=== PATIENT | female | born 1975 | race Caucasian/White ===

== ENCOUNTER 2018-08-11 22:00 | Emergency (ER) | payer OTHER ==
[2018-08-11 22:08] VITALS: BP 153/103
--- NOTE | 2018-08-11 22:50 | EDM.PDOC ---
ED HPI GENERAL MEDICAL PROBLEM - General Chief Complaint: Neuro Symptoms/Deficits Stated Complaint: R SIDE OF FACE NUMB Time Seen by Provider: 08/11/18 22:50 - History of Present Illness INITIAL COMMENTS - FREE TEXT/NARRATIVE: 42-year-old female presents emergency room with right-sided facial numbness. 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 Her vision is not interfered with she has full function of her eyelids. At times her voice seems a little slightly off according to the . This started about a day and a half ago. She's had no hearing problems no pain associated with this. - Related Data Allergies Allergy/AdvReac Type Severity Reaction Status Date / Time No Known Allergies Allergy Verified 08/11/18 22:07 Home Meds: Home Meds Citalopram Hydrobromide [Citalopram HBr] 10 tab PO DAILY 01/12/16 [History] Lisinopril 20 tab PO DAILY 01/12/16 [History] metFORMIN [Glucophage] 500 mg pe PO BID 01/12/16 [History] Liraglutide [Victoza 3-Jonnathan] 2.8 mg SQ DAILY 08/11/18 [History] atorvaSTATin [Lipitor] 10 mg PO BEDTIME 08/11/18 [History] predniSONE [Prednisone] 60 mg PO Q24H #18 tablet 08/11/18 [Rx] valACYclovir [Valtrex] 1,000 mg PO Q8H #20 tab 08/11/18 [Rx] Past Medical History Cardiovascular History: Reports: High Cholesterol, Hypertension Psychiatric History: Reports: Anxiety, Depression Endocrine/Metabolic History: Reports: Diabetes, Type II Social & Family History - Family History Family Medical History: Noncontributory - Tobacco Use Smoking Status *Q: Current Every Day Smoker Years of Tobacco use: 20 Packs/Tins Daily: 1 - Caffeine Use Caffeine Use: Reports: Coffee - Recreational Drug Use Recreational Drug Use: No ED ROS GENERAL - Review of Systems Review Of Systems: See Below Constitutional: Reports: No Symptoms HEENT: Reports: No Symptoms Respiratory: Reports: No Symptoms Cardiovascular: Reports: No Symptoms Endocrine: Reports: No Symptoms GI/Abdominal: Reports: No Symptoms : Reports: No Symptoms Skin: Reports: No Symptoms Neurological: Reports: Other (Slight numbness around the right side of the face) Psychiatric: Reports: No Symptoms ED EXAM, NEURO - Physical Exam Exam: See Below Exam Limited By: No Limitations General Appearance: Alert, No Apparent Distress Eye Exam: Bilateral Eye: EOMI, Normal Inspection, PERRL, Other (Normal liver function) Ears: Normal External Exam, Normal Canal, Hearing Grossly Normal, Normal TMs Nose: Normal Inspection, Normal Mucosa, No Blood Throat/Mouth: Normal Inspection, Normal Teeth, Normal Gums, Normal Oropharynx, Normal Voice, No Airway Compromise, Other (Right side of her lips droops subtly more than normal speech does not appear to be affected too much but at times seems like she slurs the end of the word. Her noticed that when he talked to on the phone earlier her voice was just slightly off) Head Exam: Atraumatic, Normocephalic Neck: Normal Inspection, Supple, Non-Tender, Full Range of Motion. No: Lymphadenopathy (L), Lymphadenopathy (R) Respiratory/Chest: No Respiratory Distress, Lungs Clear, Normal Breath Sounds Cardiovascular: Normal Peripheral Pulses, Regular Rate, Rhythm Neurological: Other (Cranial nerves II through XII grossly intact all muscle groups the upper lower extremities recall appropriate bilaterally deep tendon reflexes the brachial radialis are equal and appropriate bilaterally. Cerebellar testing is normal) Course - Vital Signs Last Recorded V/S: Last Vital Signs Temp 36.3 C 08/11/18 22:05 Pulse 83 08/11/18 22:05 Resp 16 08/11/18 22:05 BP 153/103 H 08/11/18 22:05 Pulse Ox 98 08/11/18 22:05 - Orders/Labs/Meds Meds: Medications Discontinued Medications Generic Name Dose Route Start Last Admin Trade Name Tracee PRN Reason Stop Dose Admin Prednisone 60 mg 08/11/18 23:26 Prednisone PO 08/11/18 23:27 ONETIME ONE Valacyclovir HCl 1,000 mg 08/11/18 23:26 Valtrex PO 08/11/18 23:27 ONETIME ONE - Re-Assessments/Exams Free Text/Narrative Re-Assessment/Exam: 08/11/18 23:28 Patient has what looks like early Smith's palsy affecting the right side of her face. Unfortunately the patient has diabetes however because of the significance the Smith's palsy the patient started on Valtrex and prednisone 60 mg a day for 7 days Valtrex 1000 mg 3 times a day Departure - Departure Time of Disposition: 23:29 Disposition: Home, Self-Care 01 Clinical Impression: Smith's palsy - Discharge Information Prescriptions: predniSONE [Prednisone] 60 mg PO Q24H #18 tablet valACYclovir [Valtrex] 1,000 mg PO Q8H #20 tab Referrals: Chay Dunham PA [Primary Care Provider] - Forms: ED Department Discharge Additional Instructions: Return to emergency room if any questions problems worsening symptoms. Follow-up with your doctor on Wednesday. Take the medications as directed
[2018-08-11] MEDS ORDERED: valACYclovir 500 MG Tab PO ONE (23:26)
[2018-08-11] MEDS ORDERED: predniSONE 20 MG Tab PO ONE (23:26)
== END 2018-08-11 23:46 | disposition home or self-care (01) ==
LOC: JD.ED 22:00
DX: G51.0 Bell's palsy (principal); E78.00 Pure hypercholesterolemia, unspecified; I10 Essential (primary) hypertension; F41.9 Anxiety disorder, unspecified; F32.9 Major depressive disorder, single episode, unspecified; E11.9 Type 2 diabetes mellitus without complications; F17.210 Nicotine dependence, cigarettes, uncomplicated; Z79.899 Other long term (current) drug therapy; Z79.84 Long term (current) use of oral hypoglycemic drugs
CPT/HCPCS: 99283; A9270

== ENCOUNTER 2020-02-28 08:36 | Emergency (ER) | payer BC, OTHER ==
[2020-02-28 09:00] VITALS: BP 197/97; PULSE 86
--- NOTE | 2020-02-28 09:24 | EDM.PDOC ---
ED HPI GENERAL MEDICAL PROBLEM - General Chief Complaint: Upper Extremity Injury/Pain Stated Complaint: RIGHT SIDE SHOULDER/NECK PAIN Time Seen by Provider: 02/28/20 08:49 Source of Information: Reports: Patient History Limitations: Reports: No Limitations - History of Present Illness INITIAL COMMENTS - FREE TEXT/NARRATIVE: 44-year-old female presents with complaints of neck pain. Patient states this started 2 to 3 weeks ago after a coughing spell. She has been in to see her primary care provider, Anais Valverde, regarding this and has been given hydrocodone and was sent for an MRI however she got very claustrophobic and could not complete the MRI. Patient states she has pain that radiates down her right shoulder down her right arm to her finger tips. At times her arm feels very heavy and she has numbness to her right hand. Right Shoulder Pain Score (Numeric/FACES): 9 - Related Data Allergies Allergy/AdvReac Type Severity Reaction Status Date / Time exenatide [From Bydureon] Allergy Other Verified 02/28/20 08:48 Home Meds: Home Meds Lisinopril 20 tab PO DAILY 01/12/16 [History] metFORMIN [Glucophage] 1,000 mg PO BID 01/12/16 [History] atorvaSTATin [Lipitor] 10 mg PO BEDTIME 08/11/18 [History] Cyclobenzaprine [Flexeril] 10 mg PO ASDIRECTED PRN 02/28/20 [History] Diclofenac Sodium [Voltaren] 75 mg PO BIDMEALS #16 tab.cr 02/28/20 [Rx] Dulaglutide [Trulicity] 0.75 mg SQ TH 02/28/20 [History] FLUoxetine HCl [Sarafem] 20 mg PO DAILY 02/28/20 [History] Hydrocodone/Acetaminophen [Hydrocodone-Acetamin 7.5-325] 7.5 - 325 mg PO ASDIRECTED PRN 02/28/20 [History] Naproxen 500 mg PO ASDIRECTED PRN 02/28/20 [History] Orphenadrine [Norflex] 100 mg PO ASDIRECTED PRN 02/28/20 [History] oxyCODONE HCl/Acetaminophen [Percocet 5-325 mg Tablet] 1 each PO Q6H PRN #10 tablet 02/28/20 [Rx] predniSONE [Prednisone] 20 mg PO ASDIRECTED #15 tablet 02/28/20 [Rx] Past Medical History HEENT History: Reports: Impaired Vision Other HEENT History: wears eyeglasses. 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: Neurological History: Reports: Other (See Below) Other Neuro History: [place] Palsy Psychiatric History: Reports: Anxiety, Depression Endocrine/Metabolic History: Reports: Diabetes, Type II - Infectious Disease History Infectious Disease History: Reports: Chicken Pox Social & Family History - Family History Family Medical History: No Pertinent Family History - Tobacco Use Tobacco Use Status *Q: Current Every Day Tobacco User Years of Tobacco use: 25 Packs/Tins Daily: 1 - Caffeine Use Caffeine Use: Reports: Coffee - Recreational Drug Use Recreational Drug Use: No Review of Systems - Review of Systems Review Of Systems: See Below Constitutional: Reports: No Symptoms Eyes: Reports: No Symptoms Ears: Reports: No Symptoms Nose: Reports: No Symptoms Mouth/Throat: Reports: No Symptoms Respiratory: Reports: No Symptoms Cardiovascular: Reports: No Symptoms GI/Abdominal: Reports: No Symptoms Genitourinary: Reports: No Symptoms Musculoskeletal: Reports: Neck Pain, Shoulder Pain (right), Arm Pain (right), Hand Pain (right) Skin: Reports: No Symptoms Neurological: Reports: No Symptoms, Numbness (right hand), Tingling (right hand) Psychiatric: Reports: No Symptoms ED EXAM, GENERAL - Physical Exam Exam: See Below Exam Limited By: No Limitations General Appearance: Alert, WD/WN, Mild Distress Eye Exam: Bilateral Eye: PERRL Ears: Hearing Grossly Normal Nose: Normal Inspection Throat/Mouth: Normal Voice, No Airway Compromise Head: Atraumatic, Normocephalic Neck: Normal Inspection, Supple, Full Range of Motion, Tender Midline (cervical ) Respiratory/Chest: No Respiratory Distress, Lungs Clear, Normal Breath Sounds, No Accessory Muscle Use, Chest Non-Tender Cardiovascular: Normal Peripheral Pulses, Regular Rate, Rhythm, No Edema Peripheral Pulses: 2+: Radial (L), Radial (R) GI/Abdominal: Normal Bowel Sounds, Soft, Non-Tender, No Distention (Female) Exam: Deferred Rectal (Female) Exam: Deferred Back Exam: Normal Inspection, Full Range of Motion Extremities: Normal Inspection, Normal Range of Motion, Non-Tender, No Pedal Edema, Normal Capillary Refill Neurological: Alert, Oriented, Normal Cognition Psychiatric: Normal Affect, Normal Mood Skin Exam: Warm, Dry, Intact, Normal Color, No Rash Lymphatic: No Adenopathy Course - Vital Signs Text/Narrative:: 44-year-old female presented to the ER with complaints of neck pain. States this started about 2 to 3 weeks ago when she had a coughing spell. Has been progressively getting worse with the pain radiating down the right shoulder to the right arm to her finger tips. At times her hand becomes numb and her arm feels heavy. It has become so severe that it has become difficult to sleep. She has seen her primary provider, Anais Valverde, who had given her hydrocodone and ordered an MRI however she was not able to tolerate it as she became claustrophobic. Upon physical assessment I was not able to reproduce the radiating pain down her arm however she does have cervical tenderness with palpation. Will start a course of Voltaren x8 days, prednisone, and will refer her to physical therapy. Patient should follow up with her primary care provider within a couple of weeks if she is not improving. Last Recorded V/S: Last Vital Signs Temp 96.8 F L 02/28/20 08:45 Pulse 86 02/28/20 08:45 Resp 18 02/28/20 08:45 BP 197/97 H 02/28/20 08:45 Pulse Ox 99 02/28/20 08:45 Departure - Departure Time of Disposition: 09:24 Disposition: Home, Self-Care 01 Condition: Good Clinical Impression: Cervical spine pain - Discharge Information Prescriptions: oxyCODONE HCl/Acetaminophen [Percocet 5-325 mg Tablet] 1 each PO Q6H PRN #10 tablet PRN Reason: Pain (Moderate 4-6) predniSONE [Prednisone] 20 mg PO ASDIRECTED #15 tablet Diclofenac Sodium [Voltaren] 75 mg PO BIDMEALS #16 tab.cr Instructions: Pain Medicine Instructions, [id number] Referrals: Kendal Santiago PA-C [Primary Care Provider] - Forms: ED Department Discharge, ED Return to Work/School Form Additional Instructions: You were seen in the ED with complaints of neck pain. Likely due to bulging disc. I was unable to reproduce the shoulder/arm pain. I have sent a prescription for Voltaren 75mg bid x 8 days and Prednisone twice daily for 5 days and then daily for 5 days. Be sure to take these medications with food. You can take Percocet 1 tab every 4 hours as needed for severe pain. Be sure to take a stool softener while taking narcotic pain medications. Follow up with physical therapy. Likely see improvement in two weeks. Follow up with your primary care provider within two weeks. Stop taking all previous prescribed pain medications. Sepsis Event Note (ED) - Evaluation Sepsis Screening Result: No Definite Risk - Focused Exam Vital Signs: Vital Signs Temp Pulse Resp BP Pulse Ox 02/28/20 08:45 96.8 F L 86 18 197/97 H 99
== END 2020-02-28 09:54 | disposition home or self-care (01) ==
LOC: JD.ED 08:36
DX: M54.2 Cervicalgia (principal); E78.00 Pure hypercholesterolemia, unspecified; I10 Essential (primary) hypertension; F41.9 Anxiety disorder, unspecified; F32.9 Major depressive disorder, single episode, unspecified; E11.9 Type 2 diabetes mellitus without complications; F17.210 Nicotine dependence, cigarettes, uncomplicated; Z88.8 Allergy status to other drugs, medicaments and biological substances; Z79.84 Long term (current) use of oral hypoglycemic drugs; Z79.899 Other long term (current) drug therapy
CPT/HCPCS: 99283

== ENCOUNTER 2021-09-28 20:55 | Emergency (ER) | payer BC ==
[2021-09-28 21:18] VITALS: BP 194/97; PULSE 82
[2021-09-28] MEDS ORDERED: Magnesium Citrate Solution 296 ML Bottle PO ONE (21:20)
[2021-09-28] MEDS ORDERED: Dicyclomine 10 MG Cap PO ONE (21:20)
[2021-09-28] MEDS ORDERED: Ketorolac 60 MG/2 ML SDV IM ONE (22:21)
[2021-09-29] MEDS ORDERED: Magnesium Citrate Solution 296 ML Bottle PO ONE (00:44)
== END 2021-09-29 00:50 | disposition home or self-care (01) ==
LOC: JD.ED 20:55
DX: K59.00 Constipation, unspecified (principal); I10 Essential (primary) hypertension; E78.00 Pure hypercholesterolemia, unspecified; E11.9 Type 2 diabetes mellitus without complications; Z88.8 Allergy status to other drugs, medicaments and biological substances; Z79.84 Long term (current) use of oral hypoglycemic drugs; Z68.34 Body mass index [BMI] 34.0-34.9, adult; Z79.899 Other long term (current) drug therapy
CPT/HCPCS: 74018; 96372; 99284; A9270; J1885; 99282

== ENCOUNTER 2021-10-01 14:42 | Emergency (ER) | payer BC ==
[2021-10-01 14:58] VITALS: BP 180/92; PULSE 83
[2021-10-01] MEDS ORDERED: Sodium Chloride 0.9% 10 ML Syringe FLUSH PRN (15:27)
[2021-10-01] MEDS ORDERED: Hyoscyamine 0.125 MG Tab.SL SL ONE (16:16)
== END 2021-10-01 19:19 | disposition home or self-care (01) ==
LOC: JD.ED 14:42
DX: R10.11 Right upper quadrant pain (principal); E78.00 Pure hypercholesterolemia, unspecified; I10 Essential (primary) hypertension; E11.9 Type 2 diabetes mellitus without complications; Z88.8 Allergy status to other drugs, medicaments and biological substances; Z79.899 Other long term (current) drug therapy; Z79.4 Long term (current) use of insulin
CPT/HCPCS: 36415; 74019; 76705; 80053; 81003; 83690; 83735; 85025; 86140; 99284; A9270; J3490

== ENCOUNTER 2022-12-01 12:48 | Emergency (ER) | payer BC ==
[2022-12-01] MEDS ORDERED: Labetalol 100 MG/20 ML MDV IVPUSH ONE (13:26)
[2022-12-01] MEDS ORDERED: LORazepam 2 MG/ML SDV IVPUSH ONE (13:45)
[2022-12-01 13:51] LABS: BASOPHILS ABSOLUTE AUTO 0.1 K/mm3 (0.0-0.2); BASOPHILS PERCENT AUTO 0.8 % (0.0-1.0); EOSINOPHILS ABSOLUTE AUTO 0.2 K/mm3 (0.0-0.4); EOSINOPHILS PERCENT AUTO 2.5 % (0.0-6.0); HEMATOCRIT 44.3 % (37.0-47.0); HEMOGLOBIN 15.2 gm/dl (12.0-16.0); IMMATURE GRAN ABSOLUTE AUTO 0.02 K/mm3 (0.00-0.05); IMMATURE GRAN PERCENT AUTO 0.2 % (0.0-0.4); LYMPHOCYTES ABSOLUTE AUTO 2.5 K/mm3 (1.0-4.8); LYMPHOCYTES PERCENT AUTO 29.2 % (24.0-44.0); MEAN CORPUSCULAR HEMOGLOBIN 29.1 pg (28.0-32.0); MEAN CORPUSCULAR HGB CONC 34.3 g/dl (32.0-36.0); MEAN CORPUSCULAR VOLUME 84.7 fl (83.0-99.0); MEAN PLATELET VOLUME 9.3 fl (9.4-12.3); MONOCYTES ABSOLUTE AUTO 0.6 K/mm3 (0.0-0.8); MONOCYTES PERCENT AUTO 7.3 % (0.0-8.0); NEUTROPHILS ABSOLUTE AUTO 5.1 K/mm3 (1.8-7.7); PLATELET COUNT,PLT 218 K/mm3 (150-400); RED BLOOD CELL COUNT 5.23 M/mm3 (4.10-5.30); WHITE BLOOD CELL COUNT,WBC 8.54 K/mm3 (3.9-11.3)
[2022-12-01 14:09] LABS: INR 0.94; PROTHROMBIN TIME 10.1 SECONDS (9.7-12.0)
[2022-12-01 14:10] LABS: PTT,PARTIAL THROMBOPLSTIN TIME 31.1 SECONDS (21.7-31.4)
[2022-12-01 14:29] LABS: A/G RATIO 0.8 (1-2); ALBUMIN 3.3 g/dl (3.4-5.0); ANION GAP 11.3 (5-15); BILIRUBIN TOTAL 0.2 mg/dL (0.2-1.0); BUN/CREATININE RATIO 14.4 (14-18); CALCIUM 8.7 mg/dL (8.5-10.1); CREATININE 0.9 mg/dL (0.55-1.02); EST CRCL DRUG DOSING (CG) 72.34 mL/min; POTASSIUM,K 3.3 mEq/L (3.5-5.1); PROTEIN TOTAL,TP 7.6 g/dl (6.4-8.2)
[2022-12-01] MEDS ORDERED: hydrALAZINE 20 MG/ML SDV IVPUSH ONE (15:33)
[2022-12-01] MEDS ORDERED: Lisinopril 20 MG Tab PO ONE (17:13)
[2022-12-01 17:25] VITALS: BP 187/94
[2022-12-01 17:26] VITALS: PULSE 84
== END 2022-12-01 19:17 | disposition home or self-care (01) ==
LOC: JD.ED 12:48
DX: I16.0 Hypertensive urgency (principal); E78.00 Pure hypercholesterolemia, unspecified; I10 Essential (primary) hypertension; E11.9 Type 2 diabetes mellitus without complications; Z88.8 Allergy status to other drugs, medicaments and biological substances
CPT/HCPCS: 36415; 70450; 80053; 84484; 85025; 85610; 85730; 93005; 96374; 96375; 99284; A9270; J0360; J2060; J3490; 93010

== ENCOUNTER 2022-12-03 07:38 | Emergency (ER) | payer BC ==
[2022-12-03] MEDS ORDERED: Sodium Chloride 0.9% 10 ML Syringe FLUSH PRN ×2 (08:06→08:12)
[2022-12-03] MEDS ORDERED: Labetalol 100 MG/20 ML MDV IVPUSH ONE ×3 (08:09→09:58)
[2022-12-03] MEDS ORDERED: LORazepam 2 MG/ML SDV IVPUSH ONE (08:09)
[2022-12-03] MEDS ORDERED: HYDROmorphone 0.5 MG/0.5 ML Syringe IVPUSH ONE (08:09)
[2022-12-03] MEDS ORDERED: Ondansetron 4 MG/2 ML SDV IVPUSH ONE (08:10)
[2022-12-03] MEDS ORDERED: Iopamidol 755 Mg/ML 100 ML Bottle IVPUSH ONE (08:12)
[2022-12-03] MEDS ORDERED: Sodium Chloride 0.9% 100 ML IV SCH (08:15)
[2022-12-03 08:21] LABS: BASOPHILS ABSOLUTE AUTO 0.1 K/mm3 (0.0-0.2); BASOPHILS PERCENT AUTO 0.8 % (0.0-1.0); EOSINOPHILS ABSOLUTE AUTO 0.3 K/mm3 (0.0-0.4); EOSINOPHILS PERCENT AUTO 3.6 % (0.0-6.0); HEMATOCRIT 43.8 % (37.0-47.0); HEMOGLOBIN 14.7 gm/dl (12.0-16.0); IMMATURE GRAN ABSOLUTE AUTO 0.04 K/mm3 (0.00-0.05); IMMATURE GRAN PERCENT AUTO 0.4 % (0.0-0.4); LYMPHOCYTES ABSOLUTE AUTO 2.9 K/mm3 (1.0-4.8); LYMPHOCYTES PERCENT AUTO 31.5 % (24.0-44.0); MEAN CORPUSCULAR HEMOGLOBIN 28.7 pg (28.0-32.0); MEAN CORPUSCULAR HGB CONC 33.6 g/dl (32.0-36.0); MEAN CORPUSCULAR VOLUME 85.5 fl (83.0-99.0); MEAN PLATELET VOLUME 9.2 fl (9.4-12.3); MONOCYTES ABSOLUTE AUTO 0.7 K/mm3 (0.0-0.8); MONOCYTES PERCENT AUTO 7.4 % (0.0-8.0); NEUTROPHILS ABSOLUTE AUTO 5.2 K/mm3 (1.8-7.7); NEUTROPHILS PERCENT AUTO 56.3 % (41.0-71.0); PLATELET COUNT,PLT 216 K/mm3 (150-400); RED BLOOD CELL COUNT 5.12 M/mm3 (4.10-5.30); WHITE BLOOD CELL COUNT,WBC 9.32 K/mm3 (3.9-11.3)
[2022-12-03 08:44] LABS: A/G RATIO 0.8 (1-2); ALBUMIN 3.4 g/dl (3.4-5.0); ANION GAP 13.2 (5-15); BILIRUBIN TOTAL 0.5 mg/dL (0.2-1.0); EST CRCL DRUG DOSING (CG) 65.11 mL/min; POTASSIUM,K 4.2 mEq/L (3.5-5.1); PROTEIN TOTAL,TP 7.6 g/dl (6.4-8.2)
[2022-12-03] MEDS ORDERED: HYDROmorphone 1 MG/ML Syringe IVPUSH ONE (09:01)
[2022-12-03] MEDS ORDERED: Ketorolac 30 MG/ML SDV IVPUSH ONE (09:57)
[2022-12-03] MEDS ORDERED: Metoclopramide 10 MG/2 ML SDV IVPUSH ONE (09:57)
[2022-12-03] MEDS ORDERED: diphenhydrAMINE 50 MG/ML SDV IVPUSH ONE (09:58)
[2022-12-03] MEDS ORDERED: hydrALAZINE 20 MG/ML SDV IVPUSH ONE (11:00)
[2022-12-03] MEDS ORDERED: amLODIPine 5 MG Tab PO ONE (13:49)
[2022-12-03 14:58] VITALS: BP 157/77; PULSE 79
== END 2022-12-03 14:55 | disposition home or self-care (01) ==
LOC: JD.ED 07:38
DX: I10 Essential (primary) hypertension (principal); E78.00 Pure hypercholesterolemia, unspecified; Z86.16 Personal history of COVID-19; E11.9 Type 2 diabetes mellitus without complications; Z87.891 Personal history of nicotine dependence; Z88.8 Allergy status to other drugs, medicaments and biological substances; Z79.899 Other long term (current) drug therapy; Z79.84 Long term (current) use of oral hypoglycemic drugs
CPT/HCPCS: 36415; 70450; 70496; 70498; 80053; 84484; 85025; 93005; 96374; 96375; 96376; 99284; A9270; J0360; J1170; J1200; J1885; J2060; J2405; J2765; J3490; Q9967

== ENCOUNTER 2023-01-03 20:25 | Emergency (ER) | payer BC ==
[2023-01-03] MEDS ORDERED: Aspirin 81 MG Tab.Chew PO ONE (20:49)
[2023-01-03] MEDS: Nitroglycerin 0.4 MG Tab.SL SL PRN ×3 (20:54→21:07)
[2023-01-03 20:57] LABS: BASOPHILS ABSOLUTE AUTO 0.1 K/mm3 (0.0-0.2); BASOPHILS PERCENT AUTO 0.7 % (0.0-1.0); EOSINOPHILS ABSOLUTE AUTO 0.3 K/mm3 (0.0-0.4); EOSINOPHILS PERCENT AUTO 3.3 % (0.0-6.0); HEMATOCRIT 42.9 % (37.0-47.0); HEMOGLOBIN 14.8 gm/dl (12.0-16.0); IMMATURE GRAN ABSOLUTE AUTO 0.03 K/mm3 (0.00-0.05); IMMATURE GRAN PERCENT AUTO 0.3 % (0.0-0.4); LYMPHOCYTES ABSOLUTE AUTO 3.2 K/mm3 (1.0-4.8); LYMPHOCYTES PERCENT AUTO 31.1 % (24.0-44.0); MEAN CORPUSCULAR HEMOGLOBIN 29.5 pg (28.0-32.0); MEAN CORPUSCULAR HGB CONC 34.5 g/dl (32.0-36.0); MEAN CORPUSCULAR VOLUME 85.6 fl (83.0-99.0); MEAN PLATELET VOLUME 9.3 fl (9.4-12.3); MONOCYTES ABSOLUTE AUTO 0.5 K/mm3 (0.0-0.8); MONOCYTES PERCENT AUTO 5.3 % (0.0-8.0); NEUTROPHILS PERCENT AUTO 59.3 % (41.0-71.0); PLATELET COUNT,PLT 264 K/mm3 (150-400); RED BLOOD CELL COUNT 5.01 M/mm3 (4.10-5.30); WHITE BLOOD CELL COUNT,WBC 10.12 K/mm3 (3.9-11.3)
[2023-01-03] MEDS ORDERED: Sodium Chloride 0.9% 1,000 ML IV SCH (21:00)
[2023-01-03 21:15] LABS: A/G RATIO 0.8 (1-2); ALBUMIN 3.7 g/dl (3.4-5.0); ANION GAP 15.3 (5-15); BILIRUBIN TOTAL 0.3 mg/dL (0.2-1.0); CALCIUM 9.5 mg/dL (8.5-10.1); EST CRCL DRUG DOSING (CG) 65.11 mL/min; POTASSIUM,K 3.3 mEq/L (3.5-5.1); PROTEIN TOTAL,TP 8.5 g/dl (6.4-8.2)
[2023-01-03 21:29] LABS: PROTHROMBIN TIME 9.8 SECONDS (9.7-12.0)
[2023-01-03 21:30] LABS: PTT,PARTIAL THROMBOPLSTIN TIME 30.5 SECONDS (21.7-31.4)
[2023-01-03] MEDS ORDERED: Morphine 2 MG/ML SYRINGE IVPUSH ONE ×3 (21:31→23:32)
[2023-01-03 21:32] LABS: INR < 0.93
[2023-01-03] MEDS ORDERED: Nitroglycerin 2% Oint 1 GM UD Packet TOP ONE (21:34)
[2023-01-03] MEDS ORDERED: Ondansetron 4 MG/2 ML SDV ONE (21:41)
[2023-01-03] MEDS ORDERED: Ondansetron 4 MG/2 ML SDV IVPUSH ONE (21:42)
[2023-01-03] MEDS ORDERED: Potassium Chloride 20 MEQ Tab.ER PO ONE (22:24)
[2023-01-03] MEDS ORDERED: Sucralfate Suspension 1 GM/10 ML Cup PO ONE (22:43)
[2023-01-03 23:53] LABS: AMYLASE 54 U/L (25-115); LIPASE 32 U/L (16-77)
[2023-01-04] MEDS ORDERED: Morphine 2 MG/ML SYRINGE IVPUSH ONE (01:47)
[2023-01-04] MEDS ORDERED: LORazepam 2 MG/ML SDV IVPUSH ONE (03:21)
[2023-01-04] MEDS ORDERED: Iopamidol 755 Mg/ML 100 ML Bottle IVPUSH ONE (03:21)
[2023-01-04] MEDS ORDERED: Sodium Chloride 0.9% 10 ML Syringe FLUSH ONE (03:21)
[2023-01-04] MEDS ORDERED: Sodium Chloride 0.9% 100 ML IV SCH (03:30)
[2023-01-04 06:52] VITALS: BP 136/78; PULSE 78
== END 2023-01-04 06:52 | disposition home or self-care (01) ==
LOC: JD.ED 20:25
DX: R07.89 Other chest pain (principal); I10 Essential (primary) hypertension; K21.9 Gastro-esophageal reflux disease without esophagitis; I25.10 Atherosclerotic heart disease of native coronary artery without angina pectoris; E11.9 Type 2 diabetes mellitus without complications; Z88.8 Allergy status to other drugs, medicaments and biological substances; Z79.84 Long term (current) use of oral hypoglycemic drugs; Z79.899 Other long term (current) drug therapy; Z87.891 Personal history of nicotine dependence
CPT/HCPCS: 36415; 71045; 71275; 80053; 82150; 83690; 84484; 85025; 85379; 85610; 85730; 86140; 93005; 96374; 96375; 96376; 99285; A9270; J2060; J2270; J2405; J3490; J7030; Q9967; 93010; 99284

== ENCOUNTER 2023-01-07 09:10 | Emergency (ER) | payer BC ==
[2023-01-07 09:25] VITALS: BP 129/115; PULSE 77
[2023-01-07] MEDS ORDERED: Sodium Chloride 0.9% 10 ML Syringe FLUSH PRN (09:30)
[2023-01-07] MEDS ORDERED: Aspirin 81 MG Tab.Chew PO ONE (09:30)
[2023-01-07] MEDS ORDERED: HYDROmorphone 0.5 MG/0.5 ML Syringe IVPUSH ONE ×2 (09:31→10:46)
[2023-01-07 09:38] LABS: BASOPHILS ABSOLUTE AUTO 0.1 K/mm3 (0.0-0.2); BASOPHILS PERCENT AUTO 0.7 % (0.0-1.0); EOSINOPHILS ABSOLUTE AUTO 0.3 K/mm3 (0.0-0.4); HEMATOCRIT 42.4 % (37.0-47.0); HEMOGLOBIN 14.2 gm/dl (12.0-16.0); IMMATURE GRAN ABSOLUTE AUTO 0.06 K/mm3 (0.00-0.05); IMMATURE GRAN PERCENT AUTO 0.6 % (0.0-0.4); LYMPHOCYTES ABSOLUTE AUTO 2.7 K/mm3 (1.0-4.8); LYMPHOCYTES PERCENT AUTO 25.3 % (24.0-44.0); MEAN CORPUSCULAR HEMOGLOBIN 28.4 pg (28.0-32.0); MEAN CORPUSCULAR HGB CONC 33.5 g/dl (32.0-36.0); MEAN CORPUSCULAR VOLUME 84.8 fl (83.0-99.0); MEAN PLATELET VOLUME 9.5 fl (9.4-12.3); MONOCYTES ABSOLUTE AUTO 0.8 K/mm3 (0.0-0.8); MONOCYTES PERCENT AUTO 7.9 % (0.0-8.0); NEUTROPHILS ABSOLUTE AUTO 6.7 K/mm3 (1.8-7.7); NEUTROPHILS PERCENT AUTO 62.5 % (41.0-71.0); PLATELET COUNT,PLT 298 K/mm3 (150-400); WHITE BLOOD CELL COUNT,WBC 10.66 K/mm3 (3.9-11.3)
[2023-01-07 10:01] LABS: A/G RATIO 0.8 (1-2); ALBUMIN 3.7 g/dl (3.4-5.0); ANION GAP 14.1 (5-15); BILIRUBIN TOTAL 0.4 mg/dL (0.2-1.0); EST CRCL DRUG DOSING (CG) 65.11 mL/min; POTASSIUM,K 4.1 mEq/L (3.5-5.1); PROTEIN TOTAL,TP 8.1 g/dl (6.4-8.2)
== END 2023-01-07 11:44 | disposition home or self-care (01) ==
LOC: JD.ED 09:10
DX: R07.89 Other chest pain (principal); I10 Essential (primary) hypertension; E78.00 Pure hypercholesterolemia, unspecified; E11.9 Type 2 diabetes mellitus without complications; K21.9 Gastro-esophageal reflux disease without esophagitis; Z86.16 Personal history of COVID-19; Z79.84 Long term (current) use of oral hypoglycemic drugs; Z79.899 Other long term (current) drug therapy; Z88.1 Allergy status to other antibiotic agents
CPT/HCPCS: 36415; 71045; 80053; 84484; 85025; 85379; 93005; 96374; 96376; 99285; A9270; J1170; J3490; 93010; 99284